=== PATIENT | male | born 1975 | race Caucasian/White ===

== ENCOUNTER 2020-09-16 15:46 | Inpatient (IN) | payer MEDICAID, SELFPAY ==
[~2020-09-16] VITALS: Ht 180.3 cm; Wt 98.0 kg
[2020-09-16 15:50] VITALS: BP_SYST 135
[2020-09-16] MEDS ORDERED: ENOXAPARIN SODIUM 60 MG/0.6 ML SYRINGE SUBCUT ONE (16:30)
[2020-09-16] MEDS ORDERED: DEXAMETHASONE SOD PHOSPHATE 4 MG/ML VIAL IVP ONE (16:30)
[2020-09-16 16:55] LABS: BASOPHILS % (AUTO) 0.6 % (0.0-2.0); EOSINOPHILS # (AUTO) 0.1 K/uL (0.0-0.4); EOSINOPHILS % (AUTO) 1.3 % (0.0-4.0); HEMATOCRIT 46.4 % (36-54); LYMPHOCYTES % (AUTO) 12.8 % (20.5-51.5); MEAN CORPUSCULAR HEMOGLOBIN 29 pg (27-31); MEAN CORPUSCULAR HGB CONC 34 % (32-36); MEAN CORPUSCULAR VOLUME 85 fL (79.0-98.0); MONOCYTES # (AUTO) 0.7 K/uL (0.0-1.0); MONOCYTES % (AUTO) 8.4 % (1.7-9.3); NEUTROPHILS # (AUTO) 6.1 K/uL (1.8-7.7); NEUTROPHILS % (AUTO) 76.9 % (40.0-70.0); PLATELET COUNT (AUTO) 311 K/uL (130-430); RED BLOOD CELL COUNT(AUTO) 5.49 MIL/uL (4.2-6.2); RED CELL DISTRIBUTION WIDTH 14.1 % (9.0-15.0); WHITE BLOOD COUNT (AUTO) 7.9 K/uL (4.8-10.8)
[2020-09-16 17:20] LABS: CALCIUM 8.6 mg/dL (8.4-11.0); CREATININE 1.05 mg/dL (0.55-1.30); POTASSIUM 3.4 mmol/L (3.5-5.1)
[2020-09-16 17:26] LABS: ALBUMIN 2.7 g/dL (3.4-4.8); TOTAL BILIRUBIN 0.6 mg/dL (0.0-1.0)
[2020-09-16] MEDS ORDERED: AZITHROMYCIN 500 MG in NS 250 ML IV ONE (18:30)
[2020-09-16] MEDS ORDERED: cefTRIAXone 1 GM IVPB PREMIX 50 ML IV ONE (18:30)
[2020-09-16] MEDS ORDERED: LEVOFLOXACIN 500 MG/D5W 100 ML IV SCH (18:30)
[2020-09-16] MEDS ORDERED: AZITHROMYCIN 500 MG/VIAL (ZITHROMAX) IV ONE (18:48)
[2020-09-16 21:20] VITALS: BP_SYST 130
[2020-09-16] MEDS: DECADRON 4 MG TABLET PO SCH (21:20)
[2020-09-17 00:45] VITALS: BP_SYST 126
[2020-09-17] MEDS: ENOXAPARIN SODIUM 100 MG/ML SYRINGE SUBCUT SCH ×2 (05:08→16:15)
[2020-09-17 05:10] VITALS: BP_SYST 126
[2020-09-17 08:00] VITALS: BP_SYST 133
[2020-09-17] MEDS: ASCORBIC ACID 500 MG TABLET PO SCH (08:39)
[2020-09-17] MEDS: CHOLECALCIFEROL (VITAMIN D3) 2,000 UNIT TABLET PO SCH (08:39)
[2020-09-17] MEDS: AZITHROMYCIN 250 MG TABLET PO SCH (08:39)
[2020-09-17] MEDS ORDERED: ENOXAPARIN SODIUM 40 MG/0.4 ML SYRINGE SUBCUT SCH (09:00)
[2020-09-17 12:00] VITALS: BP_SYST 127
[2020-09-17] MEDS: cefTRIAXone 1 GM in D5W 50 ML IV SCH (12:24)
[2020-09-17 16:00] VITALS: BP_SYST 137
[2020-09-17 20:00] VITALS: BP_SYST 146
[2020-09-17] MEDS: DECADRON 4 MG TABLET PO SCH (20:49)
[2020-09-18] VITALS: BP_SYST 141
[2020-09-18] MEDS: ENOXAPARIN SODIUM 100 MG/ML SYRINGE SUBCUT SCH ×2 (05:43→17:36)
[2020-09-18 08:00] VITALS: BP_SYST 139
[2020-09-18] MEDS: CHOLECALCIFEROL (VITAMIN D3) 2,000 UNIT TABLET PO SCH (09:01)
[2020-09-18] MEDS: AZITHROMYCIN 250 MG TABLET PO SCH (09:01)
[2020-09-18] MEDS: ASCORBIC ACID 500 MG TABLET PO SCH (09:01)
[2020-09-18] MEDS: cefTRIAXone 1 GM in D5W 50 ML IV SCH (11:08)
[2020-09-18 12:00] VITALS: BP_SYST 137
[2020-09-18 12:41] LABS: CALCIUM 8.7 mg/dL (8.4-11.0); CREATININE 1.02 mg/dL (0.55-1.30); POTASSIUM 3.6 mmol/L (3.5-5.1)
[2020-09-18 12:47] LABS: ALBUMIN 2.6 g/dL (3.4-4.8); TOTAL BILIRUBIN 0.2 mg/dL (0.0-1.0)
[2020-09-18 16:00] VITALS: BP_SYST 138
[2020-09-18 20:00] VITALS: BP_SYST 134
[2020-09-18] MEDS: DECADRON 4 MG TABLET PO SCH (20:25)
[2020-09-19] VITALS: BP_SYST 138
[2020-09-19] MEDS: ENOXAPARIN SODIUM 100 MG/ML SYRINGE SUBCUT SCH ×2 (05:45→16:51)
[2020-09-19 08:02] VITALS: BP_SYST 135
[2020-09-19] MEDS: ASCORBIC ACID 500 MG TABLET PO SCH (08:04)
[2020-09-19] MEDS: AZITHROMYCIN 250 MG TABLET PO SCH (08:04)
[2020-09-19] MEDS: CHOLECALCIFEROL (VITAMIN D3) 2,000 UNIT TABLET PO SCH (08:04)
[2020-09-19] MEDS ORDERED: DEXTROSE 50% JECT 50 ML DISP.SYRIN IVP PRN (09:00)
[2020-09-19 09:16] LABS: ALBUMIN 2.5 g/dL (3.4-4.8); BILIRUBIN,DIRECT 0.1 mg/dL (0.0-0.3); CALCIUM 8.4 mg/dL (8.4-11.0); CREATININE 0.84 mg/dL (0.55-1.30); POTASSIUM 3.7 mmol/L (3.5-5.1); TOTAL BILIRUBIN 0.2 mg/dL (0.0-1.0)
[2020-09-19] MEDS: cefTRIAXone 1 GM in D5W 50 ML IV SCH (10:54)
[2020-09-19] MEDS: INSULIN LISPRO SLIDING SCALE 100 UNITS/ML VIAL (humaLOG) SUBCUT PRN ×3 (10:55→21:00)
[2020-09-19 12:05] VITALS: BP_SYST 136
[2020-09-19 16:49] VITALS: BP_SYST 140
[2020-09-19 20:00] VITALS: BP_SYST 134
[2020-09-19] MEDS: DECADRON 4 MG TABLET PO SCH (20:28)
[2020-09-20 04:00] VITALS: BP_SYST 138
[2020-09-20] MEDS: ENOXAPARIN SODIUM 100 MG/ML SYRINGE SUBCUT SCH ×2 (05:00→18:12)
[2020-09-20] MEDS: INSULIN LISPRO SLIDING SCALE 100 UNITS/ML VIAL (humaLOG) SUBCUT PRN ×2 (06:15→18:13)
[2020-09-20 07:50] LABS: POTASSIUM 4.5 mmol/L (3.5-5.1)
[2020-09-20 07:51] LABS: BILIRUBIN,DIRECT 0.1 mg/dL (0.0-0.3); CALCIUM 8.5 mg/dL (8.4-11.0); CREATININE 0.79 mg/dL (0.55-1.30); TOTAL BILIRUBIN 0.2 mg/dL (0.0-1.0)
[2020-09-20 07:52] LABS: ALBUMIN 2.6 g/dL (3.4-4.8)
[2020-09-20] MEDS: AZITHROMYCIN 250 MG TABLET PO SCH (08:07)
[2020-09-20] MEDS: ASCORBIC ACID 500 MG TABLET PO SCH (08:07)
[2020-09-20] MEDS: CHOLECALCIFEROL (VITAMIN D3) 2,000 UNIT TABLET PO SCH (08:07)
[2020-09-20 09:00] VITALS: BP_SYST 118
[2020-09-20] MEDS: cefTRIAXone 1 GM in D5W 50 ML IV SCH (11:00)
[2020-09-20 12:00] VITALS: BP_SYST 146
[2020-09-20 16:00] VITALS: BP_SYST 103
[2020-09-20 20:00] VITALS: BP_SYST 144
[2020-09-20] MEDS: DECADRON 4 MG TABLET PO SCH (21:00)
[2020-09-21] VITALS: BP_SYST 131
[2020-09-21] MEDS: ENOXAPARIN SODIUM 100 MG/ML SYRINGE SUBCUT SCH (05:00)
[2020-09-21] MEDS: INSULIN LISPRO SLIDING SCALE 100 UNITS/ML VIAL (humaLOG) SUBCUT PRN (06:55)
[2020-09-21 07:26] LABS: BASOPHILS % (AUTO) 0.4 % (0.0-2.0); HEMATOCRIT 51.4 % (36-54); HEMOGLOBIN 17.5 g/dL (14.0-18.0); LYMPHOCYTES % (AUTO) 14.6 % (20.5-51.5); MEAN CORPUSCULAR HEMOGLOBIN 29 pg (27-31); MEAN CORPUSCULAR HGB CONC 34 % (32-36); MEAN CORPUSCULAR VOLUME 85 fL (79.0-98.0); MONOCYTES # (AUTO) 0.4 K/uL (0.0-1.0); MONOCYTES % (AUTO) 6.1 % (1.7-9.3); NEUTROPHILS # (AUTO) 5.4 K/uL (1.8-7.7); NEUTROPHILS % (AUTO) 78.9 % (40.0-70.0); PLATELET COUNT (AUTO) 550 K/uL (130-430); RED BLOOD CELL COUNT(AUTO) 6.05 MIL/uL (4.2-6.2); RED CELL DISTRIBUTION WIDTH 14.2 % (9.0-15.0); WHITE BLOOD COUNT (AUTO) 6.8 K/uL (4.8-10.8)
[2020-09-21 07:38] LABS: BILIRUBIN,DIRECT 0.1 mg/dL (0.0-0.3); CALCIUM 8.9 mg/dL (8.4-11.0); CREATININE 0.93 mg/dL (0.55-1.30); POTASSIUM 4.6 mmol/L (3.5-5.1); TOTAL BILIRUBIN 0.2 mg/dL (0.0-1.0)
[2020-09-21 08:00] VITALS: BP_SYST 130
[2020-09-21] MEDS ORDERED: ASPI-989 PO (08:00)
[2020-09-21] MEDS ORDERED: DEC4 PO (08:00)
[2020-09-21] MEDS ORDERED: AZIT250T PO (08:00)
[2020-09-21] MEDS ORDERED: METF-379 PO (08:00)
[2020-09-21 08:02] LABS: C-REACTIVE PROTEIN QUANT 0.7 mg/dL (0-0.5)
[2020-09-21] MEDS: ASCORBIC ACID 500 MG TABLET PO SCH (08:10)
[2020-09-21] MEDS: CHOLECALCIFEROL (VITAMIN D3) 2,000 UNIT TABLET PO SCH (08:10)
[2020-09-21] MEDS: AZITHROMYCIN 250 MG TABLET PO SCH (08:10)
[2020-09-21 08:48] LABS: ERYTHROCYTE SEDIMENTATION RATE 23 MM/HR (0-15)
[2020-09-21 08:58] VITALS: BP_SYST 130
== END 2020-09-21 09:50 | disposition home or self-care (01) | DRG 137 ==
LOC: SED 15:46 → STU 17:05
PROVIDERS: ADMIT General Practice; ATTEND General Practice
PROC: XW13325 Transfusion of Convalescent Plasma (Nonautologous) into Peripheral Vein, Percutaneous Approach, New Technology Group 5 (ICD-10-PCS; principal; 2020-09-18)
PROC: XW033E5 Introduction of Remdesivir Anti-infective into Peripheral Vein, Percutaneous Approach, New Technology Group 5 (ICD-10-PCS; 2020-09-18)
DX: U07.1 COVID-19 (principal); J12.89 Other viral pneumonia; E43 Unspecified severe protein-calorie malnutrition; E87.2 Acidosis; J45.909 Unspecified asthma, uncomplicated; J96.01 Acute respiratory failure with hypoxia; E66.9 Obesity, unspecified; R74.01 Elevation of levels of liver transaminase levels; D72.810 Lymphocytopenia; Z88.5 Allergy status to narcotic agent; Z88.8 Allergy status to other drugs, medicaments and biological substances; Z68.30 Body mass index [BMI] 30.0-30.9, adult; Z90.49 Acquired absence of other specified parts of digestive tract
CPT/HCPCS: 36415; 36600; 71045; 80053; 80076; 82248-TC; 82728; 82803-TC; 82962; 83036; 83605; 83615-TC; 83880; 85025; 85379; 85651-TC; 86140; 86738; 86886; 86900; 86901; 87040-TC; 93005; 96365; 96368; 96372; 96375; 99291; G0378; J0456; J0696; J1100; J1650; J1956; J7050; J7060; J8540; P9017; Q0144; U0003